=== PATIENT | female | born 2005 | race Two or more races ===

== ENCOUNTER 2024-11-15 09:22 | Outpatient (AMB) | payer OTHER, SELFPAY ==
--- NOTE | 2024-11-15 09:29 | AM.OFFWIN_ITS ---
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 Patient Tobacco Use Status: Never used Tobacco Allergies codeine Adverse Reaction (Severe, Verified 11/15/24 09:33) Anaphylaxis prochlorperazine [From Compazine] Adverse Reaction (Intermediate, Verified 11/15/24 09:33) panic attack Do you need a note to return to daycare/school/sports/work: Yes HPI HPI Comments History of Present Illness Details History of Present Illness The patient is a 19-year-old female presenting with migraine. She has been experiencing severe migraines for several months, with increasing frequency and intensity, occurring approximately three to four times per week. Initially perceived as stress-induced due to the return to school in the fall, the migraines have now escalated to a level where the patient is concerned. Associated symptoms include nausea and vomiting, with the patient having vomited twice in the last two months, which was not previously an issue. The migraines are accompanied by a sense of pressure behind the left eye, auditory disturbances described as a whoosh whoosh sound concurrent with headaches, and ocular disturbances including floaters and visual phenomena resembling a static television screen effect. During some episodes, the patient experiences complete vision loss in the right eye and loss of peripheral vision. The patient underwent a recent comprehensive eye examination, where no significant change in prescription or eye-related issues were identified by the pharmacy order entry technician. Despite extensive assessment, including intraocular pressure measurements, the data management specialist deduced that the symptoms are unlikely to be of ocular origin. Additionally, the patient mentioned a diagnosis of pneumonia approximately one and a half weeks prior, managed by her primary care physician, Dr. Duvall. Physical Exam General: Cooperative, healthy appearing, comfortable, no acute distress and well developed Orientation: Patient oriented x3 Limitations: No limitations Head: Normal to inspection Ears: Hearing grossly normal bilaterally Nose: Normal external nose present Face and sinus: Normal facial exam Eyes: Appearance normal, both eyes and all related structures Neck: Normal visual inspection and Yes full ROM Respiratory: Normal respiratory effort and able to speak in complete sentences. Skin: No rashes or lesions noted Neuro: Patient oriented x3 Extremities: Normal to inspection [facility] Social History Patient Tobacco Use Status: Never used Tobacco Review of Systems Const All systems reviewed & are unremarkable except as noted in HPI and below Physical Exam Vital Signs: Last Vital Signs Pulse 80 11/15/24 09:30 BP 116/70 11/15/24 09:30 Pulse Ox 98 11/15/24 09:30 Oxygen Delivery Method Room Air 11/15/24 09:30 Assessment & Plan Assessment & Plan (1) Vision changes: Code(s): H53.9 - Unspecified visual disturbance Plan: Plan - Advise immediate evaluation in the emergency department for neurological assessment and imaging, specifically a CT scan of the head, to rule out acute intracranial pathology given the concerning symptoms, such as vision loss and severe intractable migraines. - The patient was instructed on the urgency of the situation and advised on the importance of accessing timely diagnostic resources despite potential logistical barriers such as insurance limitations or provider availability. Her dad will be driving her via private car. - Called [facility] with expect. Patient was informed and verbally consented to the use of an ambient scribe for clinic note documentation during this visit. (2) Migraine aura, persistent, intractable: Code(s): G43.519 - Persistent migraine aura without cerebral infarction, intractable, without status migrainosus Plan: as above Coding Level of Care Code Est Pt Level 5 (09762) Diagnoses Vision changes H53.9 Migraine aura, persistent, intractable G43.519
[2024-11-15 09:30] VITALS: BP 116/70; PULSE 80; O2SAT 98
== END 2024-11-15 09:58 | disposition home or self-care (01) ==
PROVIDERS: Visit Provider Physician Assistant
DX: H53.9 Unspecified visual disturbance (principal); G43.519 Persistent migraine aura without cerebral infarction, intractable, without status migrainosus

== ENCOUNTER → 2024-11-15 09:22 | Outpatient (BNVA) | payer OTHER, SELFPAY | PROVIDERS: Visit Provider Physician Assistant | DX: H53.9 Unspecified visual disturbance (principal); G43.519 Persistent migraine aura without cerebral infarction, intractable, without status migrainosus | CPT/HCPCS: 99212 ==

== ENCOUNTER 2024-11-15 10:07 | Emergency (ER) | payer OTHER, SELFPAY ==
--- NOTE | ~2024-11-15 | CT_ITS ---
EXAMINATION: CT HEAD WITHOUT CONTRAST CLINICAL INFORMATION: headache COMPARISON: None available. TECHNIQUE: Contiguous axial imaging was performed from the skull base to vertex without intravenous administration of contrast. This CT examination was performed using dose optimization techniques as appropriate, variously including the following: *Automated exposure control *Adjustment of mA and/or kV according to patient size (this includes techniques or standardized protocols for targeted exams where dose is matched to indication/reason for exam; i.e. extremities or head) *Use of iterative reconstruction technique DLP: 647 mGy-cm FINDINGS: There is beam hardening artifact secondary to metallic piercing right ear No acute intracranial hemorrhage, mass effect, midline shift, hydrocephalus or herniation. Page-white matter differentiation is normal. Sellar/suprasellar region demonstrated no gross masses. Posterior cranial fossa contents demonstrate no acute hemorrhage or mass effect. No air-fluid levels in the included paranasal sinuses. Tympanic cavities and mastoid air cells are aerated. Bony calvarium is intact. CT/CT head/brain wo IV con IMPRESSION: No acute intracranial hemorrhage. No acute or structural brain abnormality by CT. Electronically signed by: Víctor Bullock MD 11/15/2024 03:15 PM EST
[2024-11-15 10:15] VITALS: BP 131/86; PULSE 90; RESP 18; TEMP 36.7; O2SAT 98; BMI 26.9
[2024-11-15 10:32] LABS: MANUAL DIFF FLAG NO
[2024-11-15 10:33] LABS: Basophils Absolute Auto 0.1 X10*3/uL (0.0-0.2); Eosinophils Absolute Auto 0.1 X10*3/uL (0.0-0.4); Eosinophils Percent Auto 1.4 % (0-4); Hematocrit 38.3 % (37.0-47.0); Hemoglobin 13.8 g/dl (12.0-16.0); Imm Gran Abs Auto 0.02 X10*3/uL (0.00-0.03); Imm Gran Pct Auto 0.3 % (0.0-0.4); Lymphocytes Absolute Auto 2.1 X10*3/uL (1.2-4.9); Lymphocytes Percent Auto 28.9 % (20-40); Mean Corpuscular Hemoglobin 31.5 pg (27.0-33.0); Mean Corpuscular Volume 87.4 fL (80.0-98.0); Mean Platelet Volume 9.1 fL (9.4-12.3); Monocytes Absolute Auto 0.4 X10*3/uL (0.1-1.2); Monocytes Percent Auto 6.1 % (2-11); Neutrophils Absolute Auto 4.5 x10*3/uL (2.0-8.3); Neutrophils Percent Auto 62.3 % (45-73); Platelet Count 302 X10*3/uL (160-400); Red Blood Count 4.38 X10*6/uL (4.20-5.50); Red Cell Distribution Width 11.8 % (11.0-16.0); White Blood Count 7.2 X10*3/uL (4.8-10.8)
[2024-11-15 10:48] LABS: Alanine Aminotransferase 16 U/L (0-31); Albumin Level 4.6 g/dL (3.5-5.0); Alkaline Phosphatase 55 U/L (39-117); Anion Gap 9 (12-20); Aspartate Amino Transferase 24 U/L (5-31); Bilirubin Direct 0.3 mg/dL (0.0-0.5); Bilirubin Total 0.9 mg/dL (0.0-1.0); Blood Urea Nitrogen 14 mg/dL (9-16); Calcium 9.6 mg/dL (8.4-10.2); Carbon Dioxide 27 mmol/L (22-29); Chloride 108 mmol/L (96-108); Creatinine Clr Calc Pharmacy 102.2; Estimated Glomerular Filt Rate > 60; Glucose Random 92 mg/dL (60-115); Lipase 22 U/L (8-78); Potassium 3.9 mmol/L (3.3-5.1); Sodium 140 mmol/L (135-145); Total Protein 7.7 g/dL (6.5-8.0)
[2024-11-15 11:11] LABS: Influenza A PCR NEGATIVE (Negative); Influenza B PCR NEGATIVE (Negative); Resp Syncy Virus RNA Qual PCR NEGATIVE (Negative); SARS COV2 PCR INHOUSE NEGATIVE (Negative)
[2024-11-15] MEDS: Ondansetron ODT 4 MG TAB.RAPDIS TRANSLINGU (11:58)
[2024-11-15 13:26] VITALS: BP 110/72; PULSE 88; RESP 18; TEMP 36.8; O2SAT 98
[2024-11-15 13:28] LABS: HCG Quantitative 3 mIU/mL
--- NOTE | 2024-11-15 15:33 | ED_ITS ---
HPI - Headache General Chief Complaint: Headache Stated Complaint: Migraine, vision issues, neck pain Time Seen by Provider: 11/15/24 11:07 Source: patient and RN notes reviewed Mode of arrival: ambulatory Limitations: no limitations History of Present Illness ED Provider: Sanjuana German PA-C HPI Narrative: This is a 19-year-old female, with a history of migraines, who presents emergency department with ongoing headaches since July. Patient states that since July she has had intermittent headaches that primarily are in the left side of her face. She states that she occasionally will have prodromal symptoms prior to the headaches, she states that at times she will have tunnel- like vision, and sometimes have spots in her eyes which occurs several moments after developing a migraine. Patient states that she is currently taking magnesium for her migraines. She also takes [id number] migraine medication which does help her pain. She states that she does not want to be dependent on these migraine medications. Denies any recent head trauma or strike. Patient states that over the last 3 days she has had an ongoing headache. She states that the presentation was gradual, denies any thunderclap presentation. She states that the headache is on the left side of her head, waxing and waning in severity. She denies this being the worst headache of her life. She does endorse some nausea and vomiting today. She was seen at a walk- in facility and was told to report to the emergency room for further management. She has not been seen by a neurologist. She has a primary care doctor however has not been seen, and their new patient appointment is not until April 16, 2025. She denies any dizziness, chest pain, shortness of breath, abdominal pain, nausea, vomiting or diarrhea. Denies chance of , she has an IUD. Last menstrual period was 1 week ago. No other complaints or concerns at this time. MD elicited complaint: headache and migraine Pertinent past history: migraines Onset (ago): month(s) Onset description: gradually Location: left and frontal Severity: moderate Quality & Timing: aching and throbbing Exacerbating factors: none Relieving factors: rest and NSAIDs Treatments prior to arrival: none Related Data Home Medications ?Medication ?Instructions ?Recorded ?Confirmed No Known Home Meds 11/15/24 11/15/24 Allergies Allergy/AdvReac Type Severity Reaction Status Date / Time codeine AdvReac Severe Anaphylaxis Verified 11/15/24 10:19 prochlorperazine AdvReac Intermediate panic Verified 11/15/24 10:19 [From Compazine] attack Review of Systems 2 Review of Systems: Yes all other systems are reviewed and are negative Constitutional: Constitutional: Reports as per [facility] Social History Social History Patient Tobacco Use Status: Never used Tobacco Physical Exam 2 Vital Signs: Vital Signs: Last Vital Signs Temp 97.9 F 11/15/24 17:50 Pulse 102 H 11/15/24 17:50 Resp 17 11/15/24 17:50 BP 120/57 L 11/15/24 17:50 Pulse Ox 98 11/15/24 17:50 O2 Del Method Room Air 11/15/24 17:50 BMI result Body Mass Index 26.9 Const: General: cooperative, comfortable and no acute distress O rientation/consciousness: patient oriented x3 Limitations: no limitations HEENT: Head: Yes normal to inspection, Yes normocephalic and Yes atraumatic Ears: hearing grossly normal bilaterally General nose exam: Normal external nose present Face and sinus: Yes normal facial exam Mouth: Normal oral and palatal mucosa present, oropharynx normal and moist mucous membranes Throat: Yes posterior oropharynx normal Eyes: General: appearance normal, both eyes and all related structures E yelids: Yes eyelids normal Conjunctivae: conjunctivae normal Sclerae: s clerae normal Pupils: Equal, round and reactive pupils present EOM: EOMs intact bilaterally Neck: Neck: Yes normal visual inspection, Yes full ROM and Yes no lymphadenopathy Lymphatic: no lymphadenopathy noted Chest: Chest palpation & inspection: normal inspection of the chest Resp: Effort & Inspection: normal respiratory effort and able to speak in complete sentences Auscultation: clear to auscultation bilaterally, no crackles, no rales, no rhonchi and no wheezes Cardio: Rate: regular rate Rhythm: regular rhythm Heart sounds: S1 normal heart sound present and S2 normal heart sound present GI: Inspection: Yes normal to inspection Skin: General skin exam: no rashes or lesions noted Trauma: no lacerations or abrasions Wounds: no wounds Neuro: General: patient oriented x3 and moves all extremities Cranial nerves: Yes CN's II-XII intact bilaterally and Yes Equal, round and reactive pupils present Cognition (Neuro): normal cognition Gait exam (Neuro): N ormal gait present Motor exam (neuro): 5/5 motor strength present throughout and Pronator motor function not present Extrem: General: Yes normal to inspection Right upper extremity: normal to inspection Left upper extremity: normal to inspection Right lower extremity: normal to inspection Left lower extremity: normal to inspection Course Reevaluation(s) Reevaluation #1: CT head and neck unremarkable. Beta quant is 3 however last menstrual period was 1 week ago, she is on control, denies chance of . Patient will be medicated with migraine cocktail, we will continue to closely monitor Reevaluation #2: Patient feeling much better, headache has since resolved. Discussed strict return precautions. Patient understands and agrees with plan. She will follow- up with her PCP, advised to call tomorrow to see if they have an earlier appointment. Patient stable for discharge Medications Administered Discontinued Medications Generic Name Dose Route Start Last Admin Trade Name Freq PRN Reason Stop Dose Admin Diphenhydramine HCl 25 mg 11/15/24 15:39 11/15/24 16:00 Diphenhydramine Hcl 50 Mg/Ml Vial IVPUSH 11/15/24 15:40 25 mg ONCE ONE Administration Sodium Chloride 1,000 mls @ 999 mls/hr 11/15/24 15:40 11/15/24 17:49 Ns IV 11/15/24 16:40 Infused .Q1H1M ONE Infusion Ketorolac Tromethamine 30 mg 11/15/24 15:39 11/15/24 16:01 Ketorolac Tromethamine 30 Mg/Ml Vial IVPUSH 11/15/24 15:40 30 mg ONCE ONE Administration Metoclopramide HCl 10 mg 11/15/24 15:39 11/15/24 16:01 Metoclopramide Hcl 10 Mg/2 Ml Vial IVPUSH 11/15/24 15:40 10 mg ONCE ONE Administration Ondansetron HCl 4 mg 11/15/24 11:55 11/15/24 11:58 Ondansetron Odt 4 Mg Tab.Rapdis TRANSLINGU 11/15/24 11:56 4 mg ONCE ONE Administration Medical Decision Making Medical Decision Making MDM Narrative: This is a 19-year-old female, with a history of migraines, who presents emergency department with complaints of headaches for the last 3 days. She has had ongoing headaches for the last several months. On arrival, vital signs within normal limits. She is speaking in full sentences under no acute distress. She denies this being the worst headache of her life. She does endorse some nausea. She denies wanting any pain medication at this time, and wants picture of her head. Will obtain blood work, and a CT head. She is neurologically intact without any focal deficits. Differential Diagnosis Differential Diagnoses: The differential diagnosis associated with the presentation includes ICH, intracranial mass, migraine headache, tension headache, cluster headache Admission/Observation Consideration of admission/observation: Escalation of care including admission/observation considered Lab Data MDM Lab Attestation statement: I reviewed the patient's lab results. No leukocytosis, stable H&H, chemistry within normal limits, no electrolyte derangement, negative flu, RSV, COVID 11/15/24 10:27 11/15/24 10:27 Labs: Lab Results 11/15/24 Range/Units 10:27 WBC 7.2 (4.8-10.8) X10*3/uL RBC 4.38 (4.20-5.50) X10*6/uL Hgb 13.8 (12.0-16.0) g/dl Hct 38.3 (37.0-47.0) % MCV 87.4 (80.0-98.0) fL MCH 31.5 (27.0-33.0) pg MCHC 36.0 H (31.0-35.0) g/dl RDW 11.8 (11.0-16.0) % Plt Count 302 (160-400) X10*3/uL MPV 9.1 L (9.4-12.3) fL Immature Gran % (Auto) 0.3 (0.0-0.4) % Neut % (Auto) 62.3 (45-73) % Lymph % (Auto) 28.9 (20-40) % [place] % (Auto) 6.1 (2-11) % Eos % (Auto) 1.4 (0-4) % Baso % (Auto) 1.0 (0-2) % Lymph # (Auto) 2.1 (1.2-4.9) X10*3/uL [place] # (Auto) 0.4 (0.1-1.2) X10*3/uL Eos # (Auto) 0.1 (0.0-0.4) X10*3/uL Baso # (Auto) 0.1 (0.0-0.2) X10*3/uL Abs Immat Gran (auto) 0.02 (0.00-0.03) X10*3/uL Absolute Neuts (auto) 4.5 (2.0-8.3) x10*3/uL Absolute Nucleated RBC 0.000 (0.0-0.012) X10*3/uL Nucleated RBC % (auto) 0.0 (0.0-0.2) /100WBC Sodium 140 (135-145) mmol/L Potassium 3.9 (3.3-5.1) mmol/L Chloride 108 (96-108) mmol/L Carbon Dioxide 27 (22-29) mmol/L Anion Gap 9 L (12-20) BUN 14 (9-16) mg/dL Creatinine 0.78 (0.5-1.4) mg/dL Estim Creat Clear Calc 102.2 Estimated GFR > 60 Random Glucose 92 (60-115) mg/dL Calcium 9.6 (8.4-10.2) mg/dL Total Bilirubin 0.9 (0.0-1.0) mg/dL Direct Bilirubin 0.3 (0.0-0.5) mg/dL AST 24 (5-31) U/L ALT 16 (0-31) U/L Alkaline Phosphatase 55 (39-117) U/L Total Protein 7.7 (6.5-8.0) g/dL Albumin 4.6 (3.5-5.0) g/dL Lipase 22 (8-78) U/L Beta HCG, Quant 3 mIU/mL Influenza Type A (PCR) NEGATIVE (Negative) Influenza Type B (PCR) NEGATIVE (Negative) RSV RNA Qual (PCR) NEGATIVE (Negative) SARS-CoV-2 RNA (RT-PCR) NEGATIVE (Negative) Radiology Impression Discussion of test interpretation with radiology: I have reviewed the radiologist's reading. Radiologist Impression: FINDINGS: There is beam hardening artifact secondary to metallic piercing right ear No acute intracranial hemorrhage, mass effect, midline shift, hydrocephalus or herniation. Page-white matter differentiation is normal. Sellar/suprasellar region demonstrated no gross masses. Posterior cranial fossa contents demonstrate no acute hemorrhage or mass effect. No air-fluid levels in the included paranasal sinuses. Tympanic cavities and mastoid air cells are aerated. Bony calvarium is intact. CT/CT head/brain wo IV con IMPRESSION: No acute intracranial hemorrhage. No acute or structural brain abnormality by CT. Electronically signed by: Víctor Bullock MD 11/15/2024 03:15 PM [facility] Dictated By: Víctor Serrano MD Discharge Plan Discharge Clinical Impression: Migraine Patient Disposition: Home, Self-Care Instructions: Migraine Headache (ED) Additional Instructions: You were seen in the emergency department due to headaches. Your CT of your head was normal. We had given you medications to help with your migraine which provided you with relief. Drink plenty of fluids get plenty of rest. If any new or worsening symptoms occur including but not limited to worsening headache, high fevers, severe neck pain, vomiting, chest pain, shortness for breath, please seek emergent care. Follow-up with your primary care physician as they can further manage your migraine symptoms. Prescriptions: No Action No Known Home Meds Stand Alone Forms: Work/School Release Interventions: ED Discharge Assessment Last Done: 11/15/24 17:50 Discharge Date/Time: 11/15/24 17:51 Print Language: German
[2024-11-15] MEDS: 0.9 % Sodium Chloride 1,000 ML 999 ML IV (16:00)
[2024-11-15] MEDS: diphenhydrAMINE HCL 50 MG/ML VIAL 25 MG IVPUSH (16:00)
[2024-11-15] MEDS: Ketorolac Tromethamine 30 MG/ML VIAL IVPUSH (16:01)
[2024-11-15] MEDS: Metoclopramide HCl 10 MG/2 ML VIAL IVPUSH (16:01)
[2024-11-15 17:28] VITALS: BP 120/57; PULSE 102; RESP 17; TEMP 36.6; O2SAT 98
[2024-11-15 17:50] VITALS: BP 120/57; PULSE 102; RESP 17; TEMP 36.6; O2SAT 98
== END 2024-11-15 17:51 | disposition home or self-care (01) ==
PROVIDERS: Physician Assistant Medical; Emergency Provider Emergency Medicine Emergency Medical Services; PCP Physician Assistant
DX: G43.909 Migraine, unspecified, not intractable, without status migrainosus (principal); Z03.818 Encounter for observation for suspected exposure to other biological agents ruled out
CPT/HCPCS: 0241U; 70450; 80048; 80076; 83690; 84702; 85025; 96361; 96374; 96375; 99284; J1200; J1885; J2765

== ENCOUNTER → 2024-11-15 11:46 | Outpatient (BNV) | payer OTHER, SELFPAY | PROVIDERS: Emergency Provider Emergency Medicine Emergency Medical Services; PCP Physician Assistant; Visit Provider Radiology Diagnostic Radiology | DX: R51.9 Headache, unspecified (principal) | CPT/HCPCS: 70450 ==

== ENCOUNTER 2024-12-04 00:51 | Emergency (ER) | payer OTHER, SELFPAY ==
--- NOTE | 2024-12-04 | ECG_ITS ---
Test Reason : DIZZINESS/TACHY Blood Pressure : */* mmHG Vent. Rate : 106 BPM Atrial Rate : 106 BPM P-R Int : 120 ms QRS Dur : 84 ms QT Int : 326 ms P-R-T Axes : 74 44 28 degrees QTcB Int : 433 ms Sinus tachycardia Otherwise normal ECG No previous ECGs available Referred By: Generic ED Physician Electronically Signed By: NATALEE HALL
--- NOTE | ~2024-12-04 | XR_ITS ---
CLINICAL HISTORY: tachycardia, URI symptoms 1 view chest x-ray Comparison: None Findings: No consolidation or effusion. Heart size is normal. No acute fracture. IMPRESSION: 1. No acute findings. This document has been electronically signed by: Getachew Rojo MD, PHD on 12/04/2024 02:15:34
[2024-12-04 00:54] VITALS: BP 111/77; PULSE 117; RESP 20; TEMP 37.1; O2SAT 96; BMI 26.5
--- NOTE | 2024-12-04 01:16 | MHC.EDTECH ---
Patient brought into triage area,EKG taken per order,signed by provider,labs,and sars/flu/rsv obtained and sent to lab.
[2024-12-04 01:24] LABS: Basophils Percent Auto 0.4 % (0-2); Eosinophils Absolute Auto 0.1 X10*3/uL (0.0-0.4); Eosinophils Percent Auto 0.8 % (0-4); Hematocrit 38.8 % (37.0-47.0); Hemoglobin 14.5 g/dl (12.0-16.0); Imm Gran Abs Auto 0.02 X10*3/uL (0.00-0.03); Imm Gran Pct Auto 0.2 % (0.0-0.4); Lymphocytes Absolute Auto 0.9 X10*3/uL (1.2-4.9); Lymphocytes Percent Auto 8.6 % (20-40); MANUAL DIFF FLAG NO; Mean Corpuscular HGB Conc 37.4 g/dl (31.0-35.0); Mean Corpuscular Hemoglobin 31.6 pg (27.0-33.0); Mean Corpuscular Volume 84.5 fL (80.0-98.0); Mean Platelet Volume 9.7 fL (9.4-12.3); Monocytes Absolute Auto 0.4 X10*3/uL (0.1-1.2); Monocytes Percent Auto 4.1 % (2-11); Neutrophils Absolute Auto 8.7 x10*3/uL (2.0-8.3); Neutrophils Percent Auto 85.9 % (45-73); Platelet Count 263 X10*3/uL (160-400); Red Blood Count 4.59 X10*6/uL (4.20-5.50); Red Cell Distribution Width 11.8 % (11.0-16.0); White Blood Count 10.1 X10*3/uL (4.8-10.8)
[2024-12-04 01:30] LABS: INTERNATIONAL NORM RATIO 1.1 (0.9-1.1); Prothrombin Time 12.5 SEC (10.9-12.4)
[2024-12-04] MEDS: Ondansetron ODT 4 MG TAB.RAPDIS TRANSLINGU (01:36)
[2024-12-04 01:48] LABS: Alanine Aminotransferase 12 U/L (0-31); Albumin Level 4.5 g/dL (3.5-5.0); Anion Gap 17 (12-20); Aspartate Amino Transferase 23 U/L (5-31); Bilirubin Direct 0.4 mg/dL (0.0-0.5); Bilirubin Total 1.3 mg/dL (0.0-1.0); Blood Urea Nitrogen 17 mg/dL (9-16); Calcium 9.4 mg/dL (8.4-10.2); Carbon Dioxide 19 mmol/L (22-29); Chloride 108 mmol/L (96-108); Creatinine Clr Calc Pharmacy 95.4; Estimated Glomerular Filt Rate > 60; Glucose Random 127 mg/dL (60-115); Lipase 21 U/L (8-78); Potassium 3.6 mmol/L (3.3-5.1); Sodium 140 mmol/L (135-145); Total Protein 7.3 g/dL (6.5-8.0)
[2024-12-04] MEDS: Lactated Ringers 1,000 ML 999 ML IV (02:03)
[2024-12-04] MEDS: diphenhydrAMINE HCL 50 MG/ML VIAL 25 MG IVPUSH (02:04)
[2024-12-04] MEDS: Metoclopramide HCl 10 MG/2 ML VIAL IVPUSH (02:04)
[2024-12-04 02:05] LABS: Influenza A PCR NEGATIVE (Negative); Influenza B PCR NEGATIVE (Negative); Resp Syncy Virus RNA Qual PCR NEGATIVE (Negative); SARS COV2 PCR INHOUSE NEGATIVE (Negative)
[2024-12-04 02:43] LABS: Alkaline Phosphatase 57 U/L (39-117)
[2024-12-04 03:24] VITALS: BP 105/64; PULSE 100; RESP 14; TEMP 37.7; O2SAT 100
--- NOTE | 2024-12-04 03:44 | ED_ITS ---
HPI - General Adult General Chief complaint: General Medical Stated complaint: passed out & dizzyness Time Seen by Provider: 12/04/24 02:45 Source: patient Mode of arrival: ambulatory Limitations: no limitations History of Present Illness ED Provider: HPI narrative: Patient's history of anxiety disorder complaining of nausea vomiting started just prior to arrival other family member also sick at home vomited multiple times no diarrhea Related Data Previous Rx's ?Medication ?Instructions ?Recorded ondansetron 4 mg disintegrating 4 mg PO Q6-8H PRN nausea and 12/04/24 tablet vomiting #14 tabs Allergies Allergy/AdvReac Type Severity Reaction Status Date / Time codeine AdvReac Severe Anaphylaxis Verified 12/04/24 00:59 prochlorperazine AdvReac Intermediate panic Verified 12/04/24 00:59 [From Compazine] attack Review of Systems 2 Review of Systems: Yes all other systems are reviewed and are negative [facility] Social History Social History Alcohol intake: current Alcohol intake frequency: holidays/special occasions only Patient Tobacco Use Status: Never used Tobacco Smoked in Last 30 Days: No Use of substances other than those prescribed or required for medical reasons: No Advance Directives: No Advance Directives Information Provided: Yes Patient : No Physical Exam ED Vital Signs: Vital Signs - 24 hr 12/04/24 00:54 12/04/24 03:24 Temperature 98.7 F 99.9 F Pulse Rate 117 H 100 Respiratory Rate 20 14 Blood Pressure 111/77 105/64 Pulse Oximetry 96 100 Oxygen Delivery Method Room Air Room Air BMI result Body Mass Index 26.5 Appearance: Alert. Oriented X3. No acute distress. Eyes: No pallor ENT: Pharynx normal. Oral Mucosa moist Neck: Normal inspection. Neck supple. CVS: Normal heart rate and rhythm. Pulses normal. Respiratory: No respiratory distress. Equal air entry bilateral, no wheezing/rales/rhonchi Abdomen: Soft and nontender. Bowel sounds are present, no mass palpable, no CVA tenderness Skin: Skin warm and dry. Normal skin color. Normal skin turgor. Extremities: No lower extremity edema. No calf tenderness Neuro: Oriented X 3. No motor deficit. Medications Administered Discontinued Medications Generic Name Dose Route Start Last Admin Trade Name Freq PRN Reason Stop Dose Admin Diphenhydramine HCl 25 mg 12/04/24 01:51 12/04/24 02:04 Diphenhydramine Hcl 50 Mg/Ml Vial IVPUSH 12/04/24 01:52 25 mg ONCE ONE Administration Lactated Ringer's 1,000 mls @ 999 mls/hr 12/04/24 01:51 12/04/24 03:16 Lr IV 12/04/24 02:51 Infused .Q1H1M ONE Infusion Metoclopramide HCl 10 mg 12/04/24 01:51 12/04/24 02:04 Metoclopramide Hcl 10 Mg/2 Ml Vial IVPUSH 12/04/24 01:52 10 mg ONCE ONE Administration Ondansetron HCl 4 mg 12/04/24 01:03 12/04/24 01:36 Ondansetron Odt 4 Mg Tab.Rapdis TRANSLINGU 12/04/24 01:04 4 mg ONCE ONE Administration Medical Decision Making Medical Decision Making [facility] Narrative: Patient with URI likely viral with nausea vomiting diarrhea improved after IV fluids workup negative otherwise taking p.o. fluids at time of discharge Lab Data [facility] Lab Attestation statement: I reviewed the patient's lab results. 12/04/24 01:16 12/04/24 01:16 Labs: Lab Results 12/04/24 Range/Units 01:16 WBC 10.1 (4.8-10.8) X10*3/uL RBC 4.59 (4.20-5.50) X10*6/uL Hgb 14.5 (12.0-16.0) g/dl Hct 38.8 (37.0-47.0) % MCV 84.5 (80.0-98.0) fL MCH 31.6 (27.0-33.0) pg MCHC 37.4 H (31.0-35.0) g/dl RDW 11.8 (11.0-16.0) % Plt Count 263 (160-400) X10*3/uL MPV 9.7 (9.4-12.3) fL Immature Gran % (Auto) 0.2 (0.0-0.4) % Neut % (Auto) 85.9 H (45-73) % Lymph % (Auto) 8.6 L (20-40) % [place] % (Auto) 4.1 (2-11) % Eos % (Auto) 0.8 (0-4) % Baso % (Auto) 0.4 (0-2) % Lymph # (Auto) 0.9 L (1.2-4.9) X10*3/uL [place] # (Auto) 0.4 (0.1-1.2) X10*3/uL Eos # (Auto) 0.1 (0.0-0.4) X10*3/uL Baso # (Auto) 0.0 (0.0-0.2) X10*3/uL Abs Immat Gran (auto) 0.02 (0.00-0.03) X10*3/uL Absolute Neuts (auto) 8.7 H (2.0-8.3) x10*3/uL Absolute Nucleated RBC 0.000 (0.0-0.012) X10*3/uL Nucleated RBC % (auto) 0.0 (0.0-0.2) /100WBC PT 12.5 H (10.9-12.4) SEC INR 1.1 (0.9-1.1) Sodium 140 (135-145) mmol/L Potassium 3.6 (3.3-5.1) mmol/L Chloride 108 (96-108) mmol/L Carbon Dioxide 19 L (22-29) mmol/L Anion Gap 17 (12-20) BUN 17 H (9-16) mg/dL Creatinine 0.83 (0.5-1.4) mg/dL Estim Creat Clear Calc 95.4 Estimated GFR > 60 Random Glucose 127 H (60-115) mg/dL Calcium 9.4 (8.4-10.2) mg/dL Total Bilirubin 1.3 H (0.0-1.0) mg/dL Direct Bilirubin 0.4 (0.0-0.5) mg/dL AST 23 (5-31) U/L ALT 12 (0-31) U/L Alkaline Phosphatase 57 (39-117) U/L Total Protein 7.3 (6.5-8.0) g/dL Albumin 4.5 (3.5-5.0) g/dL Lipase 21 (8-78) U/L Influenza Type A (PCR) NEGATIVE (Negative) Influenza Type B (PCR) NEGATIVE (Negative) RSV RNA Qual (PCR) NEGATIVE (Negative) SARS-CoV-2 RNA (RT-PCR) NEGATIVE (Negative) Discharge Plan Discharge Clinical Impression: Acute nausea with nonbilious vomiting, Anxiety Patient Disposition: Home, Self-Care Instructions: Acute Nausea and Vomiting (ED), Anxiety (ED) Additional Instructions: Drink plenty of fluids Medicine for nausea as prescribed Follow with your PCP as needed Prescriptions: New ondansetron 4 mg tablet,disintegrating 4 mg PO Q6-8H PRN (Reason: nausea and vomiting) Qty: 14 0RF Stand Alone Forms: Work/School Release Interventions: ED Discharge Assessment Last Done: 12/04/24 04:56 Discharge Date/Time: 12/04/24 05:00 Print Language: Telugu
[2024-12-04 04:16] VITALS: BP 105/64; PULSE 96; RESP 20; TEMP 36.9; O2SAT 97
[2024-12-04 04:56] VITALS: BP 105/64; PULSE 95; RESP 19; TEMP 36.7; O2SAT 95
== END 2024-12-04 05:00 | disposition home or self-care (01) ==
PROVIDERS: Emergency Provider Internal Medicine
DX: R55 Syncope and collapse (principal); R42 Dizziness and giddiness; R11.2 Nausea with vomiting, unspecified; R00.0 Tachycardia, unspecified; F41.9 Anxiety disorder, unspecified; Z03.818 Encounter for observation for suspected exposure to other biological agents ruled out; Z79.899 Other long term (current) drug therapy
CPT/HCPCS: 0241U; 71045; 80048; 80076; 83690; 85025; 85610; 93005; 96361; 96374; 96375; 99284; 99285; J1200; J2765; J7120

== ENCOUNTER → 2024-12-04 01:08 | Outpatient (BNV) | payer OTHER, SELFPAY | PROVIDERS: Emergency Provider Internal Medicine; Visit Provider Internal Medicine | DX: R42 Dizziness and giddiness (principal) | CPT/HCPCS: 93010 ==

== ENCOUNTER → 2024-12-04 01:20 | Outpatient (BNV) | payer OTHER, SELFPAY | PROVIDERS: Emergency Provider Internal Medicine; Visit Provider General Practice | DX: R00.0 Tachycardia, unspecified (principal) | CPT/HCPCS: 71045 ==